=== PATIENT | male | born 1980 | race Caucasian/White ===

== ENCOUNTER 2025-03-02 13:38 | Emergency (ER) | payer OTHER ==
[~2025-03-02] VITALS: Ht 172.7 cm; Wt 72.6 kg
[2025-03-02 13:45] VITALS: BP 129/61; TEMP 98.4
[2025-03-02] MEDS ORDERED: ACET-2030 PO (14:00)
[2025-03-02] MEDS ORDERED: BENZ-13 PO (14:00)
[2025-03-02] MEDS ORDERED: IBUP-1953 PO (14:00)
[2025-03-02 14:08] VITALS: O2SAT 99
== END 2025-03-02 14:09 | disposition home or self-care (01) ==
LOC: ER 13:55 → EDBD 13:55 → ER 14:09
DX: J06.9 Acute upper respiratory infection, unspecified (principal); B97.89 Other viral agents as the cause of diseases classified elsewhere